=== PATIENT | female | born 1950 | race Caucasian/White ===

== ENCOUNTER → 2019-04-30 | Outpatient (CLI) | payer MEDICARE | END | disposition home or self-care (01) | LOC: CFH 12:19 | PROVIDERS: ATTEND Internal Medicine Cardiovascular Disease | DX: I08.2 Rheumatic disorders of both aortic and tricuspid valves (principal); I70.0 Atherosclerosis of aorta; I10 Essential (primary) hypertension | CPT/HCPCS: 93306 ==

== ENCOUNTER 2019-05-12 11:51 | Day surgery (SDC) | payer MEDICARE ==
[~2019-05-12] VITALS: Ht 162.6 cm; Wt 106.4 kg
[2019-05-12] MEDS ORDERED: SODIUM CHLORIDE 0.9% 1,000 ML IV SCH ×2 (12:10→15:21)
[2019-05-12] MEDS ORDERED: PLEASE ENTER HEIGHT AND WEIGHT MC SCH (12:30)
[2019-05-12] MEDS ORDERED: PLEASE ENTER ALLERGIES MC SCH (12:30)
[2019-05-12] MEDS ORDERED: ACAI PO (13:09)
[2019-05-12] MEDS ORDERED: VIT1CAPS11 PO (13:09)
[2019-05-12] MEDS ORDERED: LOSA50TA14 PO (13:09)
[2019-05-12] MEDS ORDERED: ALBU8.5H8 INH (13:09)
[2019-05-12] MEDS ORDERED: FENO160T PO (13:09)
[2019-05-12] MEDS ORDERED: TRIA1TAB5 PO (13:09)
[2019-05-12] MEDS ORDERED: FEXO1TAB25 PO (13:09)
[2019-05-12] MEDS ORDERED: PRAV40TA2 PO (13:09)
[2019-05-12] MEDS ORDERED: OMEP40CA6 PO (13:09)
[2019-05-12] MEDS ORDERED: FLUT9.9S INH (13:09)
[2019-05-12] MEDS ORDERED: FLUT1AER PO (13:09)
[2019-05-12 13:16] LABS: BASOPHILS # (AUTO) 0.06 x10^3/uL (0-0.1); BASOPHILS % (AUTO) 1 % (0-1); EOSINOPHILS # (AUTO) 0.09 x10^3/uL (0-0.4); EOSINOPHILS % (AUTO) 1 % (1-7); LYMPHOCYTES # (AUTO) 1.96 x10^3/uL (1-3.4); LYMPHOCYTES % (AUTO) 29 % (22-44); MD NO; MEAN CORPUSCULAR HEMOGLOBIN 28.8 pg (27.0-34.8); MEAN CORPUSCULAR HGB CONC 32.5 g/dL (32.4-35.8); MEAN CORPUSCULAR VOLUME 88.6 fL (80-100); MEAN PLATELET VOLUME 8.3 fL (7.4-10.4); MONOCYTES % (AUTO) 7 % (2-9); NEUTROPHILS # (AUTO) 4.15 x10^3/uL (1.8-6.8); NEUTROPHILS % (AUTO) 61 % (42-75); PLATELET COUNT 379 x10^3/uL (130-400); RED BLOOD COUNT 4.63 x10^6/uL (3.82-5.3); RED CELL DISTRIBUTION WIDTH 15.2 % (9.6-15.2)
[2019-05-12 13:28] LABS: ANION GAP 8 mmol/L (5-15); CALCIUM 9.4 mg/dL (8.5-10.1); CHLORIDE 106 mmol/L (98-107); CREATININE 1.67 mg/dL (0.55-1.02)
[2019-05-12] MEDS ORDERED: MIDAZOLAM 1 MG/ML, 2ML ONE (14:43)
[2019-05-12] MEDS ORDERED: VERAPAMIL 2.5 MG/ML, 2ML ONE (14:43)
[2019-05-12] MEDS ORDERED: FENTANYL PF 100 MCG/2ML ONE (14:43)
[2019-05-12] MEDS ORDERED: HEPARIN 1,000 UNITS/ML, 10ML ONE (14:44)
[2019-05-12] MEDS ORDERED: LIDOCAINE-MPF 1%, 5ML ONE (14:44)
== END 2019-05-12 16:52 | disposition home or self-care (01) ==
LOC: CACL 11:51
PROVIDERS: ATTEND Internal Medicine Cardiovascular Disease
DX: I35.0 Nonrheumatic aortic (valve) stenosis (principal); R07.89 Other chest pain; I10 Essential (primary) hypertension; E78.5 Hyperlipidemia, unspecified; J45.909 Unspecified asthma, uncomplicated; Z88.0 Allergy status to penicillin; Z88.8 Allergy status to other drugs, medicaments and biological substances
CPT/HCPCS: 36415; 80048; 85025; 93458; 99156; C1769; C1894; J1644; J2250; J3010; Q9967

== ENCOUNTER 2019-06-11 08:31 | Outpatient (CLI) | payer MEDICARE | END 2019-06-11 23:59 | disposition home or self-care (01) | LOC: CVU 08:31 → RAD 23:59 | PROVIDERS: ATTEND Internal Medicine Cardiovascular Disease | DX: I65.23 Occlusion and stenosis of bilateral carotid arteries (principal); I77.1 Stricture of artery; I10 Essential (primary) hypertension; E78.5 Hyperlipidemia, unspecified; I35.0 Nonrheumatic aortic (valve) stenosis | CPT/HCPCS: 71275; 74174; 93880; 94060; 94726; 94729; Q9967 ==

== ENCOUNTER 2019-06-19 06:44 | Inpatient (IN) | payer MEDICARE ==
[~2019-06-19] VITALS: Ht 162.6 cm; Wt 107.7 kg
[2019-06-20 08:02] VITALS: BP 147/89
== END 2019-06-20 12:25 | disposition home or self-care (01) | DRG 266 ==
LOC: ORIP 06:44 → CCU 14:09 → 5SO 15:54 → DCLOUNGE 06-20 12:02
PROVIDERS: ADMIT Internal Medicine Cardiovascular Disease; ATTEND Internal Medicine Cardiovascular Disease
PROC: 03HY32Z Insertion of Monitoring Device into Upper Artery, Percutaneous Approach (ICD-10-PCS; principal; 2019-06-19)
PROC: 02RF38Z Replacement of Aortic Valve with Zooplastic Tissue, Percutaneous Approach (ICD-10-PCS; 2019-06-19)
PROC: B24BZZ4 Ultrasonography of Heart with Aorta, Transesophageal (ICD-10-PCS; 2019-06-19)
PROC: B3101ZZ Fluoroscopy of Thoracic Aorta using Low Osmolar Contrast (ICD-10-PCS; 2019-06-19)
DX: I35.0 Nonrheumatic aortic (valve) stenosis (principal); Z00.6 Encounter for examination for normal comparison and control in clinical research program; I50.33 Acute on chronic diastolic (congestive) heart failure; Z68.41 Body mass index [BMI] 40.0-44.9, adult; I13.0 Hypertensive heart and chronic kidney disease with heart failure and stage 1 through stage 4 chronic kidney disease, or unspecified chronic kidney disease; E78.5 Hyperlipidemia, unspecified; J45.909 Unspecified asthma, uncomplicated; K21.9 Gastro-esophageal reflux disease without esophagitis; N18.9 Chronic kidney disease, unspecified; I65.29 Occlusion and stenosis of unspecified carotid artery; E66.01 Morbid (severe) obesity due to excess calories; E78.1 Pure hyperglyceridemia; G89.29 Other chronic pain; M54.9 Dorsalgia, unspecified; Z88.8 Allergy status to other drugs, medicaments and biological substances; Z88.0 Allergy status to penicillin
CPT/HCPCS: 33361; 36415; 80048; 80053; 83880; 85025; 85347; 85610; 85730; 86850; 86900; 86923; 87081; 93005; 93312; 93321; 93325; 93355; 93591; C1760; C1769; C1894; G0378; J0690; J1644; J2704; J2720; J3010; C8924; J0330; Q9967

== ENCOUNTER 2019-07-15 12:28 | Outpatient (CLI) | payer MEDICARE ==
[~2019-07-15 12:28] MED LIST: ACAI PO; ALBU8.5H8 INH; ASPI81TA45 PO; CLOP75TA PO; FENO160T PO; FEXO1TAB25 PO; FLUT1AER PO; FLUT9.9S INH; LOSA50TA14 PO; OMEP40CA6 PO; PRAV40TA2 PO; TRIA1TAB5 PO; VIT1CAPS11 PO
== END 2019-07-15 23:59 | disposition home or self-care (01) ==
LOC: CVU 12:28
PROVIDERS: ATTEND Internal Medicine Cardiovascular Disease
DX: I08.1 Rheumatic disorders of both mitral and tricuspid valves (principal)
CPT/HCPCS: 93306

== ENCOUNTER → 2020-01-15 | Outpatient (CLI) | payer MEDICARE ==
[~2020-01-15] MED LIST changes: +OMEP40CA42 PO; -OMEP40CA6 PO
== END | disposition home or self-care (01) ==
LOC: CFH 12:59
PROVIDERS: ATTEND Nurse Practitioner Family
DX: M19.071 Primary osteoarthritis, right ankle and foot (principal)

== ENCOUNTER → 2020-06-14 | Outpatient (CLI) | payer MEDICARE ==
[2020-06-14 11:46] LABS: ALANINE AMINOTRANSFERASE 20 U/L (12-78); ALBUMIN 3.8 g/dL (3.4-5.0); ANION GAP 5 mmol/L (5-15); CALCIUM 9.6 mg/dL (8.5-10.1); CHLORIDE 109 mmol/L (98-107); CHOLESTEROL, TOTAL 198 mg/dL (140-239); CREATININE 1.82 mg/dL (0.55-1.02); TRIGLYCERIDES 143 mg/dL (50-200); VLDL CHOLESTEROL 29 mg/dL (0-25)
[2020-06-14 11:48] LABS: ALKALINE PHOSPHATASE 72 U/L (45-117); BILIRUBIN,TOTAL 0.5 mg/dL (0.2-1.0); HDL CHOL % 34 % (28-40); HDL CHOLESTEROL (DIRECT) 67 mg/dL (40-60); LDL CHOLESTEROL,CALCULATED 102 mg/dL (54-169); LDL/HDL RATIO 1.5 (0.5-3.0); TOTAL PROTEIN 7.8 g/dL (6.4-8.2)
== END | disposition home or self-care (01) ==
LOC: CVU 09:56
PROVIDERS: ATTEND Internal Medicine Cardiovascular Disease
DX: I10 Essential (primary) hypertension (principal); R06.02 Shortness of breath; E78.5 Hyperlipidemia, unspecified; Q23.0 Congenital stenosis of aortic valve; Z95.2 Presence of prosthetic heart valve
CPT/HCPCS: 36415; 80053; 80061; 93306

== ENCOUNTER → 2020-10-05 | Outpatient (CLI) | payer MEDICARE | END | disposition home or self-care (01) | LOC: CVU 10:40 | PROVIDERS: ATTEND Internal Medicine Cardiovascular Disease | DX: I34.8 Other nonrheumatic mitral valve disorders (principal); I11.9 Hypertensive heart disease without heart failure; R06.02 Shortness of breath; Q23.0 Congenital stenosis of aortic valve | CPT/HCPCS: 93306 ==

== ENCOUNTER 2020-11-08 10:21 | Day surgery (SDC) | payer MEDICARE ==
[2020-11-08] MEDS ORDERED: LIDOCAINE 2%, 20ML SQ PRN (11:00)
[2020-11-08] MEDS ORDERED: LIDOCAINE 1%, 20ML ONE (11:10)
== END 2020-11-08 13:00 | disposition home or self-care (01) ==
LOC: CACL 10:21
PROVIDERS: ATTEND Internal Medicine Cardiovascular Disease
DX: I63.89 Other cerebral infarction (principal); I48.0 Paroxysmal atrial fibrillation; I10 Essential (primary) hypertension; E78.5 Hyperlipidemia, unspecified; Q23.0 Congenital stenosis of aortic valve; E66.9 Obesity, unspecified; Z88.0 Allergy status to penicillin; Z79.82 Long term (current) use of aspirin; Z79.899 Other long term (current) drug therapy; Z79.01 Long term (current) use of anticoagulants; Z88.8 Allergy status to other drugs, medicaments and biological substances; Z91.048 Other nonmedicinal substance allergy status; Z68.41 Body mass index [BMI] 40.0-44.9, adult; Z98.890 Other specified postprocedural states
CPT/HCPCS: 33285; C1764